=== PATIENT | female | born 1985 | race African-American/Black ===

== ENCOUNTER 2020-04-21 20:54 | Emergency (ER) | payer BC, OTHER ==
[2020-04-21] MEDS ORDERED: OCTYL 2-CYANOACRYLATE 1 EACH TP ONE (21:13)
[2020-04-21] MEDS ORDERED: TETANUS/DIPHTHERIA TOXOID [ADULT] 0.5 ML VIAL IM ONE (21:15)
== END 2020-04-21 21:52 | disposition home or self-care (01) ==
LOC: EDH 20:54
DX: S61.211A Laceration without foreign body of left index finger without damage to nail, initial encounter (principal); Z98.890 Other specified postprocedural states; W45.8XXA Other foreign body or object entering through skin, initial encounter; Y93.89 Activity, other specified; Y92.89 Other specified places as the place of occurrence of the external cause; Y99.8 Other external cause status
CPT/HCPCS: 12001; 90471; 90714

== ENCOUNTER → 2023-10-06 | Outpatient (CLI) | payer BC | END | disposition home or self-care (01) | LOC: RAH 12:59 | PROVIDERS: ATTEND Obstetrics & Gynecology | DX: N63.10 Unspecified lump in the right breast, unspecified quadrant (principal) | CPT/HCPCS: 76641 ==

== ENCOUNTER → 2023-11-16 | Outpatient (CLI) | payer BC | END | disposition home or self-care (01) | LOC: RAH 13:45 | PROVIDERS: ATTEND Obstetrics & Gynecology | DX: R92.323 Mammographic fibroglandular density, bilateral breasts (principal); N63.12 Unspecified lump in the right breast, upper inner quadrant; N64.52 Nipple discharge | CPT/HCPCS: 77066 ==

== ENCOUNTER 2025-01-11 07:53 | Emergency (ER) | payer BC ==
[~2025-01-11] VITALS: Ht 157.5 cm; Wt 93.0 kg
--- NOTE | 2025-01-11 08:00 | NUR ---
URINE SAMPLE SENT
[2025-01-11] MEDS ORDERED: NAPROXEN 500 MG TABLET PO ONE (08:30)
[2025-01-11 08:34] LABS: NUCLEATED RED BLOOD CELLS 0.0 % (0.0-0.19); PLATELET COUNT (AUTO) 244.0 K/uL (130-400); RED BLOOD CELL COUNT(AUTO) 4.31 MIL/uL (4.00-5.50); RED CELL DISTRIBUTION WIDTH 12.2 % (11.0-15.5); WHITE BLOOD COUNT (AUTO) 12.4 K/uL (4.8-10.8)
--- NOTE | 2025-01-11 08:39 | ERN ---
General Chief Complaint: Abdominal Pain Stated Complaint: ABD PAIN Time Seen by MD: 08:16 Source: patient History of Present Illness Initial Comments This patient is a 39-year-old female who presented with complaint of abdominal pain. Patient states that her pain is localized to the left lower abdominal quadrant and is tender to deep palpation. She confirms similar history of pain 1 month ago which was attributed to ovarian cystic pain on ultrasound. Timing/Duration: 24 hours Severity: moderate Allergies: Coded Allergies: No Known Drug Allergies (Unverified Allergy, Unknown, 01/11/25) Home Meds Active Scripts Naproxen (Naproxen) 500 Mg Tablet, 500 MG PO BID for 5 Days, #10 TAB Prov:DANIEL HOWARD MD 01/11/25 Cephalexin Monohydrate (Keflex) 500 Mg Cap, 1 CAP PO BID for 5 Days, #10 CAP 0 Refills Prov:DANIEL HOWARD MD 01/11/25 Past Medical History Past Medical History: Ovarian Cyst Past Surgical History: Female( History) LMP: Jan 09, 2025 : 3 Para: 3 Aborts: 0 Constitutional: (-) chills, (-) diaphoresis, (-) fever, (-) malaise, (-) weakness, (-) other documentation Respiratory: (-) cough, (-) orthopnea, (-) short of breath, (-) stridor, (-) wheezing, (-) other documentation Cardiovascular: (-) chest pain, (-) edema, (-) palpitations, (-) syncope, (-) dyspnea on exertion, (-) other documentation Gastrointestinal/Abdominal: (+) abdominal pain Neuro: (-) altered mental status, (-) headache, (-) syncope, (-) paralysis, (-) numbness, (-) seizure, (-) pre-existing deficit, (-) tremors, (-) weakness, (-) dizziness, (-) slurred speech, (-) vertigo, (-) other documentation Physical Exam General Appearance: (+) no apparent distress Orientation: (+) alert, (+) oriented x 3 Head/Face Trauma: No Ear, Nose, Throat: (+) hearing grossly normal, (+) normal ENT inspection, (+) moist mucous membraine; (-) normal pharynx, (-) normal TM, (-) abnormal TM, (-) pharyngeal erythema, (-) sinus drainange, (-) sinus pain, (-) tonsillar exudate, (-) tonsillar swelling, (-) nasal drip, (-) nasal congestion, (-) hearing decreased, (-) dry mucous membraine, (-) other documentation Neck: (+) normal inspection, (+) supple, (+) full range of motion Respiratory: (+) chest non-tender, (+) lungs clear; (-) well ventilated, (-) decreased breath sounds, (-) retractions, (-) abnormal breath sound, (-) crackles, (-) plerual rub, (-) rales, (-) rhonchi, (- ) stridor, (-) wheezing, (-) other documentation Heart: (+) regular Gastrointestinal: (+) soft, (+) tender Extremities: (+) normal range of motion, (+) non-tender, (+) normal inspection Neurologic/Psychiatric: (+) normal speech, (+) no motor defecits, (+) no sensory deficits, (+) normal gait, (+) normal mood/affect Results Laboratory and Microbiology Lab and Micro Result Laboratory Tests Test 01/11/25 08:12 01/11/25 08:15 Urine Color COLORLESS (YELLOW) Urine Appearance CLEAR (CLEAR) Urine pH 7.0 (5.0-8.0) Urine Specific [place] 1.011 (1.001-1.031) Urine Protein 10 mg/dL (NEGATIVE) H Urine Glucose (UA) NEGATIVE mg/dL (NEGATIVE) Urine Ketones NEGATIVE mg/dL (NEGATIVE) Urine Occult Blood LARGE (NEGATIVE) H Urine Nitrate NEGATIVE (NEGATIVE) Urine Bilirubin NEGATIVE mg/dL (NEGATIVE) Urine Urobilinogen 0.2 mg/dL (0.2-1.0) Urine Leukocyte Esterase 250 Coleman/uL (NEGATIVE) H Urine RBC 26-50 /HPF (0-1) H Urine WBC 11-25 /HPF (0-1) H Urine Squamous Epithelial Cells FEW /HPF (0-2) Urine Bacteria RARE /HPF (None Seen) Urine HCG, Qualitative NEGATIVE (NEGATIVE) White Blood Count 12.4 K/uL (4.8-10.8) H Red Blood Count 4.31 MIL/uL (4.00-5.50) Hemoglobin 12.8 g/dL (12.0-16.0) Hematocrit 38.2 % (36-48) Mean Corpuscular Volume 88.6 fL (79-99) Mean Corpuscular Hemoglobin 29.7 pg (27.0-33.0) Mean Corpuscular Hemoglobin Concent 33.5 g/dL (32.0-36.0) Red Cell Distribution Width 12.2 % (11.0-15.5) Platelet Count 244 K/uL (130-400) Mean Platelet Volume 12.3 fL (7.5-10.5) H Nucleated Red Blood Cells 0.0 % (0.0-0.19) Labs Reviewed?: Yes EKG/XRAY/US/CT/MRI X-RAY Comment IMAGING REPORT Signed PATIENT: FRANCA EDWARD MR#: [id number] : 1985 SEX: F AGE: 39 LOCATION: [facility] ORDER 9 STATUS: [facility] REPORT#: [id number] SERVICE 8 REASON: Pain in left lower abd quadrant, suspectecd cystic rupture ORDERING PHYSICIAN: DANIEL HOWARD MD PROCEDURE: PELVCOMP - US PELVIC NON-OB COMP EXAM: US Pelvis, Complete Transabdominal COMPARISON: None provided. CLINICAL HISTORY: 39-year-old female with left lower quadrant abdominal pain. Clinical concern for ruptured ovarian cyst. TECHNIQUE: Transabdominal pelvic ultrasound (complete) with color Doppler and image documentation. FINDINGS: UTERUS/CERVIX: Measures 11.6 ??? 3.9 ??? 6.1 cm. Normal in contour. No fibroid or other uterine mass. ENDOMETRIUM: Measures 2 mm. Within normal limits for thickness. RIGHT OVARY: Measures 4.5 ??? 3.1 ??? 4.0 cm. Normal Doppler flow. A complex cyst is seen measuring 4.1 ??? 3.3 ??? 3.7 cm. LEFT OVARY: Measures 5.0 ??? 3.4 ??? 4.2 cm. Normal Doppler flow. A complex cyst is seen measuring 4.2 ??? 2.4 ??? 3.8 cm. CUL-DE-SAC: No free fluid. IMPRESSION: Bilateral complex ovarian cysts concerning for hemorrhagic cysts or endometriotic cysts. Further evaluation with MRI of the pelvis is suggested. /[place] DICTATED BY: ODILON CONTRERAS Jr., MD DATE: 01/11/25 1144 ELECTRONICALLY SIGNED BY: ODILON CONTRERAS Jr., MD DATE: 01/11/25 1144 [facility] [place] Differential diagnoses: Ovarian cyst, ruptured ovarian cyst, urinary tract infection, urolithiasis This patient, a 39-year-old female, presented with complaint of left lower abdominal quadrant pain which began 2 days ago. Ultrasound pelvis non OB was performed which showed Bilateral complex ovarian cysts concerning for hemorrhagic cysts or endometriotic cysts. Qualitative beta HCG urine was negative. Patient was given naproxen to manage pain. CBC was done which showed mild leukocytosis and urinalysis was positive for leukocyte esterase and WBCs. Patient is being discharged on Keflex 500 mg b.i.d. for 5 days and naproxen 500 mg. ED Course Orders Procedure Category Date Status Time Us Pelvic Non-Ob Comp US 01/11/25 Resulted 08:19 ,Urine Test LAB 01/11/25 Complete 08:19 Naproxen (Naprosyn) PHA 01/11/25 Complete 08:30 Cbc Without LAB 01/11/25 Complete Differential 08:21 Naproxen (Naprosyn) PHA 01/11/25 Complete 09:30 Urinalysis Profile LAB 01/11/25 Complete 08:30 Culture Urine ERICA 01/11/25 In Process 11:14 Current Medications Medications (Trade) Dose Ordered Sig/Chuck Route PRN Reason Start Time Stop Time Status Last Admin Dose Admin Naproxen (Naprosyn) 500 mg ONCE ONCE PO 01/11/25 08:30 01/11/25 08:28 DC Naproxen (Naprosyn) 500 mg ONCE ONCE PO 01/11/25 09:30 01/11/25 09:31 DC 01/11/25 10:27 Vital Signs Date Time Temp Pulse Resp B/P (MAP) Pulse Ox O2 Delivery O2 Flow Rate FiO2 01/11/25 10:37 98.2 80 16 105/46 100 Room Air* 0 21 01/11/25 07:57 97.5 92 18 113/59 97 Room Air* 0 21 01/11/25 07:57 97.5 92 18 113/59 97 Room Air 0 DX & DISP Disposition: Discharge Departure Impression: Primary Impression: Complex cyst of both ovaries Additional Impression: UTI (urinary tract infection) Condition: Stable Scripts Naproxen (Naproxen) 500 Mg Tablet 500 MG PO BID for 5 Days, #10 TAB Prov: DANIEL HOWARD MD 01/11/25 Cephalexin Monohydrate (Keflex) 500 Mg Cap 1 CAP PO BID for 5 Days, #10 CAP 0 Refills Prov: DANIEL HOWARD MD 01/11/25 Additional Instructions: FOLLOW-UP WITH PRIMARY CARE PROVIDER IN 1 TO 2 DAYS. TAKE MEDICATIONS DIRECTED HERE IN THE EMERGENCY ROOM. OKAY TO CONTINUE HOME MEDICATIONS UNLESS OTHERWISE DISCUSSED DURING YOUR VISIT IN THE EMERGENCY ROOM TODAY. RETURN TO YOUR NEAREST EMERGENCY ROOM IF SYMPTOMS WORSEN OR IF THERE IS NO IMPROVEMENT. CALL 911 IF YOU NEED IMMEDIATE ASSISTANCE. TAKE TYLENOL VIYR-KAN-LPVQUYL NEEDED AND IF NO CONTRAINDICATIONS ARE PRESENT. INCREASE ORAL HYDRATION. A W OUND CULTURE OR URINE CULTURE WAS ORDERED HERE IN THE EMERGENCY ROOM DEPARTMENT PLEASE FOLLOW-UP WITH PRIMARY CARE PROVIDER AND ADVISE THEM TO GET REPORTS FROM OUR FACILITY. IF YOU HAD ANY SHERICE WRAP/SPLINTS THAT WERE APPLIED HERE, PLEASE DO NOT REMOVE THEM UNTIL YOU SEE YOUR PRIMARY CARE OR SPECIALTY. REFERRALS: Referrals: MALENA MCCORMICK MD (PCP) JLUIS ELLISON MD Time of Disposition: 11:40 DANIEL HOWARD MD Jan 11, 2025 08:39 ALEXYS BROWN MD Jan 11, 2025 11:40
[2025-01-11] MEDS: NAPROXEN 500 MG TABLET PO ONE (10:27)
[2025-01-11 10:37] VITALS: BP 105/46; PULSE 80; RESP 16; TEMP 98.3; O2SAT 100
--- NOTE | 2025-01-11 10:45 | HMCIMG ---
EXAM: US Pelvis, Complete Transabdominal COMPARISON: None provided. CLINICAL HISTORY: 39-year-old female with left lower quadrant abdominal pain. Clinical concern for ruptured ovarian cyst. TECHNIQUE: Transabdominal pelvic ultrasound (complete) with color Doppler and image documentation. FINDINGS: UTERUS/CERVIX: Measures 11.6 ??? 3.9 ??? 6.1 cm. Normal in contour. No fibroid or other uterine mass. ENDOMETRIUM: Measures 2 mm. Within normal limits for thickness. RIGHT OVARY: Measures 4.5 ??? 3.1 ??? 4.0 cm. Normal Doppler flow. A complex cyst is seen measuring 4.1 ??? 3.3 ??? 3.7 cm. LEFT OVARY: Measures 5.0 ??? 3.4 ??? 4.2 cm. Normal Doppler flow. A complex cyst is seen measuring 4.2 ??? 2.4 ??? 3.8 cm. CUL-DE-SAC: No free fluid. IMPRESSION: Bilateral complex ovarian cysts concerning for hemorrhagic cysts or endometriotic cysts. Further evaluation with MRI of the pelvis is suggested. /[place]
[2025-01-11 11:07] LABS: APPEARANCE,URINE CLEAR (CLEAR); GLUCOSE, URINE (UA) NEGATIVE (NEGATIVE); LEUKOCYTE ESTERASE ,URINE 250 Leu/uL (NEGATIVE); NITRATE,URINE NEGATIVE (NEGATIVE); OCCULT BLOOD,URINE LARGE (NEGATIVE)
[2025-01-11 11:13] LABS: ADD UA MICROSCOPIC YES
[2025-01-11 11:16] LABS: SQUAMOUS EPITHELIAL CELL,UR FEW /HPF (0-2)
[2025-01-11] MEDS ORDERED: CEPH500B PO (11:35)
[2025-01-11] MEDS ORDERED: NAPR-1194 PO (11:35)
== END 2025-01-11 11:55 | disposition home or self-care (01) ==
LOC: EDH 07:53
DX: N83.291 Other ovarian cyst, right side (principal); N83.292 Other ovarian cyst, left side; N39.0 Urinary tract infection, site not specified; Z79.899 Other long term (current) drug therapy; Z98.890 Other specified postprocedural states
CPT/HCPCS: 36415; 76856; 81001; 81025; 85027; 87086; 99284